=== PATIENT | female | born 1935 | race Asian ===

== ENCOUNTER → 2016-05-04 | Outpatient (CLI) | payer OTHER, MEDICAID | LOC: FIMAGING 07:14 | PROVIDERS: ATTEND Nurse Practitioner | DX: N83.201 Unspecified ovarian cyst, right side (principal); N83.202 Unspecified ovarian cyst, left side; N28.9 Disorder of kidney and ureter, unspecified; Z79.52 Long term (current) use of systemic steroids ==

== ENCOUNTER → 2016-10-04 | Outpatient (CLI) | payer OTHER, MEDICAID | LOC: FIMAGING 13:50 | PROVIDERS: ATTEND Surgery | DX: N63 Unspecified lump in breast (principal) ==

== ENCOUNTER → 2017-06-26 | Outpatient (CLI) | payer OTHER, MEDICAID ==
[~2017-06-26] MED LIST: GADOBUTROL 10 ML VIAL IVP ONE
== END ==
LOC: FIMAGING 06:48
PROVIDERS: ATTEND Otolaryngology
DX: H91.8X2 Other specified hearing loss, left ear (principal); Z98.2 Presence of cerebrospinal fluid drainage device; J32.3 Chronic sphenoidal sinusitis
CPT/HCPCS: 70553; A9585

== ENCOUNTER → 2018-05-09 | Outpatient (CLI) | payer OTHER, MEDICAID | LOC: FIMAGING 13:41 | PROVIDERS: ATTEND Nurse Practitioner | DX: Z13.820 Encounter for screening for osteoporosis (principal); M85.88 Other specified disorders of bone density and structure, other site; E27.1 Primary adrenocortical insufficiency; Z79.890 Hormone replacement therapy; Z79.52 Long term (current) use of systemic steroids ==